=== PATIENT | male | born 1990 | race Caucasian/White ===

== ENCOUNTER 2017-05-09 19:38 | Emergency (ER) | payer BC ==
[~2017-05-09] VITALS: Ht 182.8 cm; Wt 113.4 kg
[~2017-05-09 19:38] MED LIST: AMOXICILLIN500 MG PO; FLONASE 0.05% 121 EA NAS; ZYRTEC10 MG PO
== END 2017-05-09 21:04 | disposition left against medical advice (07) ==
LOC: ED 19:38
DX: M25.512 Pain in left shoulder (principal); Z53.21 Procedure and treatment not carried out due to patient leaving prior to being seen by health care provider

== ENCOUNTER 2023-02-02 15:53 | Emergency (ER) | payer OTHER ==
[~2023-02-02] VITALS: Wt 108.9 kg
[~2023-02-02 15:53] MED LIST changes: +FLONASE ALLERG9.9 ML NAS; +MUCINEX DM 30/61 TAB PO; +NAPROSYN500 MG PO; +TYLENOL325 M1 PO
[2023-02-02] MEDS ORDERED: METHOCARBAMOL500 M1 PO (17:13)
== END 2023-02-02 17:18 | disposition home or self-care (01) ==
LOC: ED 15:53
DX: S13.9XXA Sprain of joints and ligaments of unspecified parts of neck, initial encounter (principal); S39.012A Strain of muscle, fascia and tendon of lower back, initial encounter; V49.9XXA Car occupant (driver) (passenger) injured in unspecified traffic accident, initial encounter; Y93.89 Activity, other specified; Y92.410 Unspecified street and highway as the place of occurrence of the external cause; Y99.0 Civilian activity done for income or pay